=== PATIENT | male | born 1960 | race Caucasian/White ===

== ENCOUNTER → 2017-12-05 15:49 | Outpatient (CLI) | payer OTHER ==
[~2017-12-05 15:49] MED LIST: CRESTOR10 MG; KETO10TA2 PO; MIRALAX17 GM PO; NEURONTIN300 MG PO; PERCOCET 5-3251 EACH PO; ULTRACET PO; ZIAC 5-6.25 MG1 TAB; ZOFRAN ODT4 MG PO
== END | disposition home or self-care (01) ==
LOC: LAB 15:49
DX: K40.90 Unilateral inguinal hernia, without obstruction or gangrene, not specified as recurrent (principal)

== ENCOUNTER 2017-12-06 05:50 | Day surgery (SDC) | payer OTHER ==
[~2017-12-06 05:50] MED LIST changes: -MIRALAX17 GM PO; -NEURONTIN300 MG PO; -PERCOCET 5-3251 EACH PO; -ZOFRAN ODT4 MG PO
[2017-12-06] MEDS ORDERED: NEURONTIN300 MG PO (09:41)
[2017-12-06] MEDS ORDERED: MIRALAX17 GM PO (09:41)
[2017-12-06] MEDS ORDERED: ZOFRAN ODT4 MG PO (09:41)
[2017-12-06] MEDS ORDERED: ULTRACET PO (09:41)
[2017-12-06] MEDS ORDERED: PERCOCET 5-3251 EACH PO (13:22)
== END 2017-12-06 13:25 | disposition home or self-care (01) ==
LOC: CIR.AMB 05:50
DX: K40.20 Bilateral inguinal hernia, without obstruction or gangrene, not specified as recurrent (principal); K42.9 Umbilical hernia without obstruction or gangrene

== ENCOUNTER 2017-12-19 12:06 | Emergency (ER) | payer OTHER ==
[~2017-12-19] VITALS: Ht 175.3 cm; Wt 71.7 kg
[~2017-12-19 12:06] MED LIST changes: +MIRALAX17 GM PO; +NEURONTIN300 MG PO; +PERCOCET 5-3251 EACH PO; +ZOFRAN ODT4 MG PO
== END 2017-12-19 22:18 | disposition home or self-care (01) ==
LOC: ER 12:06
DX: R42 Dizziness and giddiness (principal); E86.0 Dehydration; R00.2 Palpitations

== ENCOUNTER 2018-12-12 16:16 | Emergency (ER) | payer OTHER ==
[~2018-12-12] VITALS: Ht 175.3 cm; Wt 73.5 kg
== END 2018-12-12 19:20 | disposition home or self-care (01) ==
LOC: ER 16:16
DX: R07.89 Other chest pain (principal)

== ENCOUNTER 2019-08-19 13:00 | Outpatient (CLI) | payer OTHER | END 2019-08-19 13:10 | disposition home or self-care (01) | LOC: LAB 13:00 | DX: H10.13 Acute atopic conjunctivitis, bilateral (principal); H16.143 Punctate keratitis, bilateral ==